=== PATIENT | male | born 1965 | race Caucasian/White ===

== ENCOUNTER 2024-03-14 16:20 | Emergency (ER) | payer OTHER ==
[~2024-03-14] VITALS: Ht 175.3 cm; Wt 72.0 kg
[~2024-03-14 16:20] MED LIST: DOXYCYCLINE HY100 MG PO; LEVOTHROID137 MCG PO; METFORMIN HCL500 MG PO; METOPROLOL TART25 MG PO; NAPROXEN500 MG PO; NORCO 5-325 TA1 EACH PO; NYSTATIN100000 UN1 PO; ROBITUSSIN COU118 ML PO; SEPTRA DS TABL1 EACH PO; SIMVASTATIN20 MG PO; ZITHROMAX250 MG PO
[2024-03-14] MEDS ORDERED: METFORMIN HCL500 MG PO (16:33)
[2024-03-14] MEDS ORDERED: LEVOTHYROXINE137 MCG PO (16:33)
[2024-03-14] MEDS ORDERED: CLOPIDOGREL75 MG PO (16:33)
[2024-03-14] MEDS ORDERED: ATORVASTATIN CA80 MG PO (16:33)
[2024-03-14] MEDS ORDERED: ATORVASTATIN CA40 MG PO (16:33)
[2024-03-14] MEDS ORDERED: METOPROLOL SUCC50 MG PO (16:34)
[2024-03-14] MEDS ORDERED: BENAZEPRIL HCL20 MG PO (16:34)
[2024-03-14] MEDS ORDERED: CEPHALEXIN500 M1 PO (16:58)
[2024-03-14] MEDS ORDERED: TETANUS-DIPHTHERIA TOXOIDS/PF 0.5 ML VIAL IM ONE (17:00)
[2024-03-14 17:50] VITALS: BP 101/78
== END 2024-03-14 17:58 | disposition home or self-care (01) ==
LOC: ED 16:20
DX: S61.041A Puncture wound with foreign body of right thumb without damage to nail, initial encounter (principal); L08.9 Local infection of the skin and subcutaneous tissue, unspecified; E11.9 Type 2 diabetes mellitus without complications; I10 Essential (primary) hypertension; F17.200 Nicotine dependence, unspecified, uncomplicated; X58.XXXA Exposure to other specified factors, initial encounter; Z95.5 Presence of coronary angioplasty implant and graft; Z79.890 Hormone replacement therapy; Z79.899 Other long term (current) drug therapy
CPT/HCPCS: 90714

== ENCOUNTER 2025-01-19 22:38 | Emergency (ER) | payer OTHER ==
[~2025-01-19] VITALS: Ht 175.3 cm; Wt 70.4 kg
[~2025-01-19 22:38] MED LIST changes: +ATORVASTATIN CA40 MG PO; +ATORVASTATIN CA80 MG PO; +BENAZEPRIL HCL20 MG PO; +CEPHALEXIN500 M1 PO; +CLOPIDOGREL75 MG PO; +LEVOTHYROXINE137 MCG PO; +METOPROLOL SUCC50 MG PO
[2025-01-19 23:04] LABS: BASOPHILS 1.1 % (0-2); EOSINOPHILS 5.2 % (0-6); HEMATOCRIT 30.1 % (35.0-50.0); HEMOGLOBIN 10.4 g/dL (12.0-18.0); LYMPHOCYTES 22.4 % (24-44); MCH 28.9 (27-36); MCHC 34.5 g/dl (30-36); MCV 83.7 fl (81-99); MONOCYTES 10.1 % (0-12); NEUTROPHILS 61.2 % (39-80); PLATELET COUNT 380 K/uL (140-440); RBC 3.59 M/ul (4.3-5.7); RDW 13.7 (10.5-15.0)
[2025-01-19] MEDS ORDERED: OXYCODONE HCL5 MG PO (23:06)
[2025-01-19 23:23] LABS: ALBUMIN 3.3 g/dL (3.4-5.0); ALBUMIN/GLOBULIN RATIO 0.85 (1.1-2.4); ANION GAP 14.8 (7-21); BILIRUBIN, TOTAL 0.8 mg/dL (0.2-1.0); BUN/CREATININE RATIO 13.33 (6.0-28.6); CALCIUM 8.8 mg/dL (8.5-10.1); CREATININE, SERUM 0.9 mg/dL (0.70-1.30); POTASSIUM 3.8 mmol/L (3.5-5.1); PROTEIN, TOTAL 7.2 g/dL (6.4-8.2)
[2025-01-19] MEDS ORDERED: SODIUM CHLORIDE 0.9% 500 ML IV PRN (23:30)
[2025-01-19] MEDS ORDERED: MORPHINE SULFATE 4 MG/ML VIAL IV ONE (23:30)
[2025-01-20 01:14] VITALS: BP 104/65
== END 2025-01-20 01:14 | disposition home or self-care (01) ==
LOC: ED 22:38
PROVIDERS: Family Medicine
DX: I97.638 Postprocedural hematoma of a circulatory system organ or structure following other circulatory system procedure (principal); E11.9 Type 2 diabetes mellitus without complications; I10 Essential (primary) hypertension; E78.5 Hyperlipidemia, unspecified; I25.10 Atherosclerotic heart disease of native coronary artery without angina pectoris; E07.9 Disorder of thyroid, unspecified; F17.200 Nicotine dependence, unspecified, uncomplicated; Z95.5 Presence of coronary angioplasty implant and graft; Z88.8 Allergy status to other drugs, medicaments and biological substances; Z79.01 Long term (current) use of anticoagulants; Z79.84 Long term (current) use of oral hypoglycemic drugs; Z79.890 Hormone replacement therapy; Z79.899 Other long term (current) drug therapy
CPT/HCPCS: 36415; 76882; 80053; 85025; 85060; 96374; 99284-25; J2270; J7040